=== PATIENT | male | born 1995 | race Caucasian/White ===

== ENCOUNTER 2021-12-26 06:06 | Outpatient (REF) | payer OTHER, SELFPAY ==
--- NOTE | ~2021-12-26 | XR_ITS ---
EXAMINATION: XR SHOULDER, RIGHT CLINICAL INFORMATION: Right shoulder pain. COMPARISON: None TECHNIQUE: AP external rotation, scapular Y, and axillary views of the right shoulder. FINDINGS: Acromioclavicular and glenohumeral joint spaces are maintained. Downsloping acromion. No displaced fracture or dislocation. No abnormal soft tissue calcifications. XR/XR shoulder RT min 2V IMPRESSION: No acute abnormality.
== END 2021-12-26 06:07 | disposition home or self-care (01) ==
LOC: HO.HOSX 06:06
PROVIDERS: Visit Provider Physician Assistant
DX: M25.511 Pain in right shoulder (principal)
CPT/HCPCS: 73030

== ENCOUNTER → 2022-01-25 11:21 | Outpatient (BNVA) | payer OTHER, SELFPAY | PROVIDERS: PCP Internal Medicine; Visit Provider Orthopaedic Surgery | DX: S43.431A Superior glenoid labrum lesion of right shoulder, initial encounter (principal) | CPT/HCPCS: 20610; J1100 ==

== ENCOUNTER → 2022-04-29 14:43 | Outpatient (BNVA) | payer OTHER, SELFPAY | PROVIDERS: PCP Internal Medicine; Visit Provider Orthopaedic Surgery | DX: S43.431D Superior glenoid labrum lesion of right shoulder, subsequent encounter (principal) | CPT/HCPCS: 99212 ==

== ENCOUNTER 2024-10-05 11:03 | Outpatient (REF) | payer OTHER, SELFPAY ==
[2024-10-05 13:27] LABS: MANUAL DIFF FLAG NO
--- OUTSIDE RECORDS SUMMARY | 2024-10-05 13:35 | XMS_ITS | Encounter Summary ---
Author Organization [employer] Address [address] [facility] [place] [address] Care Team Providers Care Tappet Adjuster Name Role Phone Lupis Ahumada MD Primary Care Provider + Reason for Visit * Reason Onset Date Comments Chart prep 10/01/2024 Encounter Details Date Type Department Care Team (Late st Contact Info) Description 10/01/2024 Telephone [facility] MEDICINE [address] [place], [place] [phone] Lupis Ahumada MD [address] [place], [place] [phone] Chart prep Social History Tobacco Use Types Packs/Day Years Used Date Smoking Tobacco: Never Smokeless Tobacco: Never Alcohol Use Standard Drinks/Week Comments Never 0 (1 standard drink = 0.6 oz pur e alcohol) Housing Stability Answer Date Recorded What is your housing situation today? I have naelpeña [place] 11/04/[address] you li ve. Do you have problems with any of the following? None of the above 11/04/2023 Food Insecurity Answer Date Recorded Within the past 12 months, y ou worried that your food would run out before you got money to buy more: Never True 11/04/2023 Within the past 12 months,th e food you bought just didn't last and you didn't have enough money to get more: Never True Transportation Answer Date Recorded In the past 12 months, has l ack of transportation kept you from medical appts, meetings, work or from getting things needed for daily living? No 11/04/2023 Utilities Answer Date Recorded In the past 12 months, has t he electric, gas, oil or water company threatened to shut off services in your home? No 11/04/2023 Sex and Gender Information Value Date Recorded Sex Assigned at Male 04/22/2022 10:35 AM EDT Legal Sex Male 10:35 AM EDT Gender Identity Male 04/22/2022 10:35 AM EDT Sexual Orientation Choose not to disclose 2021 10:35 AM EDT documented as of this encounter Miscellaneous Notes * Telephone Encounter - Maria Esther Mejia MA - 10/01/2024 2:04 PM EDT Chart Prep Labs: not done Images: done Referrals: not applicable Vaccines due: yes Screenings: not applicable Overdue care gaps: PHQ-9 documented in this encounter Plan of Treatment Upcoming Encounters Date Type Department Care Team (Late st Contact Info) Description 12/30/2024 10:15 AM EDT Office Visit [facility] MEDICINE [address] [place] [address] Lupis Ahumada MD [address] [place] [phone] documented as of this encounter Visit Diagnoses Not on filedocumented in this encounter Care Teams Tappet Adjuster Relationship Specialty Start Date End Date Lupis Ahumada MD [address] [place] [phone] PCP - General Family Medicine 07/28/18 documented as of this encounter
--- OUTSIDE RECORDS SUMMARY | 2024-10-05 13:35 | XMS_ITS | Encounter Summary ---
Author Organization [employer] [facility] Address [address] [facility] [address] [place] [address] Care Team Providers Care Transformation Manager Name Role Phone Lupis Ahumada MD Primary Care Provider + Reason for Visit * Reason Comments Med Change Request Encounter Details Date Type Department Care Team (Late Contact Info) Description 10/26/2023 Refill [facility] MEDICINE [address] [place] [phone] Lupis Ahumada MD [address] [place] [address] [phone] Social History Tobacco Use Types Packs/Day Years Used Date Smoking Tobacco: Never Assessed Sex and Gender Information Value Date Recorded Sex Assigned at Male 04/22/2022 10:35 AM EDT Legal Sex Male 10:35 AM EDT Gender Identity Male 04/22/2022 10:35 AM EDT Sexual Orientation Choose not to disclose 2021 10:35 AM EDT documented as of this encounter Plan of Treatment Upcoming Encounters Date Type Department Care Team (Late Contact Info) Description 12/30/2024 10:15 AM EDT Office Visit [facility] MEDICINE [address] [place] [phone] Lupis Ahumada MD [address] [place] [address] [phone] documented as of this encounter Visit Diagnoses Not on filedocumented in this encounter Care Teams Transformation Manager Relationship Specialty Start Date End Date Lupis Ahumada MD [address] [place] [address] [phone] PCP - General Family Medicine 07/28/18 documented as of this encounter
--- OUTSIDE RECORDS SUMMARY | 2024-10-05 13:35 | XMS_ITS | Clinical Summary ---
Author Organization [employer] Address [address] [place] [address] Care Team Providers Care Designer Writer Name Role Phone Lupis Ahumada MD Primary Care Provider + Allergies No known active allergies Medications acyclovir (Zovirax) 400 MG tablet TAKE 1 TABLET BY MOUTH THREE TIMES A DAY 90 tablet 11 4 Active Blood Pressure Monitoring (Blood Pressure Cuff) misc Use daily as prescribed 1 each 5 Active Active Problems Problem Noted Date Diagnosed Date Preventative health care 10/05/2024 Class 1 obesity due to exces s calories without serious comorbidity with body mass index (BMI) of 34.0 to 34.9 in adult 10/05/2024 Elevated blood pressure reading 10/05/2024 Sexually transmitted disease counseling 10/06/19 25 Acne cosmetica 10/31/2023 Recurrent herpes simplex 09/25/2023 Assessment & Plan (11/04/2023 1:53 PM EDT): - oral, controlled - continue Acyclovir 400 mg BID for prophylaxis, he will increase to TID for 7 day for acute flares - avoid oral intercourse during acute episodes Herpes labialis 10/07/2018 Vitamin D deficiency 10/07/2018 Major depression single episode, in partial scott ssion 07/28/2018 Assessment & Plan (11/04/2023 1:54 PM EDT): - seems to be doing well - continue f/u with new counselor - re consult PRN - f/u with me in 6-8 months for PE Resolved Problems Problem Noted Date Diagnosed Date Resolved Date Benzodiazepine dependence 10/07/2018 Encounters Date Type Department Care Team Description 10/05/2024 10:00 AM EDT Office Visit [facility] MEDICINE [address] [place] [phone] Lupis Ahumada MD Preventative health care (Primary Dx); Recurrent herpes simplex; Class 1 obesity due to excess calories without serious comorbidity with body mass index (BMI) of 34.0 to 34.9 in adult; Elevated blood pressure reading; Sexually transmitted disease counseling; Exercise counseling; Dietary counseling 10/05/2024 Travel 10/01/[address] [address] Lupis Ahumada MD Chart prep 09/24/2024 Patient Outreach [address] [phone] Lupis Ahumada MD Pre-visit Planning ((Unable to complete full PVP screening,will complete during visit) 07/23/[address] [phone] Lupis Ahumada MD September recall from Last 3 Months Immunizations Name Administration Dates Next Due Hep B, adult 01/22/2019,11/06/2018,10/07/2018 Tdap 07/01/2023 Social History Tobacco Use Types Packs/Day Years Used Date Smoking Tobacco: Never Smokeless Tobacco: Never Tobacco Cessation:Counseling Given: Not Answered Alcohol Use Standard Drinks/Week Comments Never 0 (1 standard drink = 0.6 oz pur e alcohol) Housing Stability Answer Date Recorded What is your housing situation today? I have nael newton 11/04/[address] you [...] not to disclose 2021 10:35 AM EDT Last Filed Vital Signs Vital Sign Reading Time Taken Comments Blood Pressure 140/95 10/05/2024 10:45 AM EDT Pulse 68 10/05/2024 10:03 AM EDT Temperature 36.2 ??C (97.2 ??F) 10/05/2024 10:03 AM E DT Respiratory Rate - - Oxygen Saturation 100% 10/05/2024 10:03 AM EDT Inhaled Oxygen Concentration - - Weight 99.3 kg (219 lb) 10/05/2024 10:03 AM EDT Height 170.2 cm (5' 7 ) 10/05/2024 10:03 AM EDT Body Mass Index 34.3 10/05/2024 10:03 AM EDT Plan of Treatment Upcoming Encounters Date Type Department Care Team (Late st Contact Info) Description 12/30/2024 10:15 AM EDT Office Visit [facility] MEDICINE [address] [place] [address] Lupis Ahumada MD [address] [place] [address] Health Maintenance Due Date Last Done Comments Depression Screening 1996 HIV Screening 1996 Lipid Panel 1996 Alcohol/Substance Use Screening 2008 Hepatitis C Screening 2014 Hepatitis B Vaccines (3 of 3 - 19+ 3-dose series) 04/08/2019 01/22/2019, 11/06/2018, 10/07/2018 COVID-19 Vaccine (2023-2 5 season) 2024 Influenza Vaccine (#1) 2024 Family Planning (PISQ) 11/03/2024 11/04/2023 SDOH Screening 11/03/2024 11/04/2023 Tobacco Screening 10/05/2025 10/05/2024 DTaP/Tdap/Td Vaccines (2 - T d or Tdap) 07/01/2033 07/01/2023 Zoster Vaccines (1 of 2) 2046 RSV Patients and Patients Aged 60 years or older (1 - 1-dose 75+ series) 12/17/2071 HIB Vaccines Aged Out No longer eligi ble based on patient's age to complete this topic HPV Vaccines Aged Out No longer eligi ble based on patient's age to complete this topic Hepatitis A Vaccines Aged Out No long er eligible based on patient's age to complete this topic IPV Vaccines Aged Out No longer eligi ble based on patient's age to complete this topic Meningococcal Vaccine Aged Out No [place] eligible based on patient's age to complete this topic Pneumococcal Vaccine: Pediatrics (0 to 5 Years) and At-Risk Patients (6 to 49) Years) Aged Out No longer eligible b ased on patient's age to complete this topic RSV under 20 months Aged Out No longe r eligible based on patient's age to complete this topic Rotavirus Vaccines Aged Out No longer eligible based on patient's age to complete this topic Insurance Care Teams Designer Writer Relationship Specialty Start Date End Date Lupis Ahumada MD [address] [place] [phone] PCP - General Family Medicine 07/28/18
--- OUTSIDE RECORDS SUMMARY | 2024-10-05 13:35 | XMS_ITS | Clinical Summary ---
Author Organization [facility] ity Address [address] [place] [address] Care Team Providers Care Hood Fitter Name Role Phone Unavailable Primary Care Provider Unavailabl e Family History Relation Name Status Comments Father Alive Mother Alive Social History Tobacco Use Types Packs/Day Years Used Date Smoking Tobacco: Never Smokeless Tobacco: Never Alcohol Use Standard Drinks/Week Comments No 0 (1 standard drink = 0.6 oz pur e alcohol) Sex and Gender Information Value Date Recorded Sex Assigned at Not on file Legal Sex Male 8:16 PM EST Gender Identity Not on file Sexual Orientation Not on file Obstetrics History Plan of Treatment Health Maintenance Due Date Last Done Comments DTaP,Tdap,and Td Vaccines (1 - Tdap) 12/17/2015 Hepatitis B Vaccines (1 of 3 - 19+ 3-dose series) 12/17/2015 Depression Screening 05/25/2022 HIV Screening 05/25/2022 Hepatitis C Screening 05/25/2022 Social Influencers of Health Screening 05/25/2022 COVID-19 Vaccine ( - 2023-2 5 season) 2024 Influenza Vaccine (Season Ended) 2025 HIB Vaccines Aged Out No longer eligi [...] on patient's age to complete this topic MMR Vaccines Aged Out No longer eligi ble based on patient's age to complete this topic Meningococcal ACWY Vaccine Aged Out N o longer eligible based on patient's age to complete this topic Meningococcal B Vaccine Aged Out No l onger eligible based on patient's age to complete this topic Pneumococcal Vaccine: Pediat rics (0 to 5 Years) and At-Risk Patients (6 to 64 Years) Aged Out No longer eligible b ased on patient's age to complete this topic RSV Immunization Patients Un dashawn 20 months Aged Out No longer eligible b ased on patient's age to complete this topic Varicella Vaccines Aged Out No longer eligible based on patient's age to complete this topic
--- OUTSIDE RECORDS SUMMARY | 2024-10-05 13:35 | XMS_ITS | Encounter Summary ---
Author Organization [employer] Address [address] [facility] [address] [place] [address] Care Team Providers Care Rear Load Truck Driver Name Role Phone Lupis Ahumada MD Primary Care Provider + Reason for Visit * Reason Comments Annual Exam Encounter Details Date Type Department Care Team (Late st Contact Info) Description 10/05/2024 10:00 AM EDT Office Visit [facility] MEDICINE [address] [place], [place] [phone] Lupis Ahumada MD [address] [place], [place] [phone] Preventative health care (Primary Dx); Recurrent herpes simplex; Class 1 obesity due to excess calories without serious comorbidity with body mass index (BMI) of 34.0 to 34.9 in adult; Elevated blood pressure reading; Sexually transmitted disease counseling; Exercise counseling; Dietary counseling Social History Tobacco Use Types Packs/Day Years [...] AM EDT documented as of this encounter Last Filed Vital Signs Vital Sign Reading [...] Mass Index 34.3 10/05/2024 10:03 AM EDT documented in this encounter Plan of Treatment Upcoming Encounters Date Type Department Care Team (Late st Contact Info) Description 12/30/2024 10:15 AM EDT Office Visit [facility] MEDICINE [address] [place] [address] Lupis Ahumada MD [address] [place] [address] Scheduled Orders Name Type Priority Associated Diagnoses Orde r Schedule Syphilis Screen Lab Routine Sexually transmitted disease counseling Expected: 10/05/2024 (Approximate), Expires: 10/05/2025 HIV-1/2 Antigen and Antibodies, Fourth Generation, with Reflexes Lab Routine Sexually transmitted disease counseling Expected: 10/05/2024 (Approximate), Expires: 10/05/2025 Hepatitis Panel, General Lab Routine Sexually transmitted disease counseling Expected: 10/05/2024 (Approximate), Expires: 10/05/2025 Chlamydia/N. Gonorrhoeae RNA, TMA, Urogenitial Microbiology Routine Sexually transmitted disease counseling Ordered: 10/05/2024 documented as of this encounter Visit Diagnoses Diagnosis Preventative health care- Primary Routine general medical examination at a health care facility Recurrent herpes simplex Herpes simplex without mention of complication Class 1 obesity due to excess calories without serious comorbidity with body mass index (BMI) of 34.0 to 34.9 in adult Elevated blood pressure reading Elevated blood pressure reading without diagnosis of hypertension Sexually transmitted disease counseling Counseling on other sexually transmitted diseases Exercise counseling Dietary counseling Dietary surveillance and counseling documented in this encounter Care Teams Rear Load Truck Driver Relationship Specialty Start Date End Date Lupis Ahumada MD [address] [place] [phone] PCP - General Family Medicine 07/28/18 documented as of this encounter
--- OUTSIDE RECORDS SUMMARY | 2024-10-05 13:35 | XMS_ITS | Encounter Summary ---
Author Organization [facility] Address [address] [facility] [address] [place] [address] Care Team Providers Care Desktop Architect Name Role Phone Lupis Ahumada MD Primary Care Provider + Reason for Visit * Reason Comments Med Refill Encounter Details Date Type Department Care Team (Late Contact Info) Description 03/09/2023 Refill [facility] MEDICINE [address] [place] [phone] Lupis Ahumada MD [address] [place] [phone] Social History Tobacco Use Types Packs/Day Years [...] Description 12/30/2024 10:15 AM EDT Office Visit [facility] MEDICINE [address] [place] [phone] Lupis Ahumada MD [address] [place] [phone] documented as of this encounter Visit Diagnoses Not on filedocumented in this encounter Care Teams Desktop Architect Relationship Specialty Start Date End Date Lupis Ahumada MD [address] [place] [address] [phone] PCP - General Family Medicine 07/28/18 documented as of this encounter
--- OUTSIDE RECORDS SUMMARY | 2024-10-05 13:35 | XMS_ITS | Encounter Summary ---
Author Organization [employer] Address [address] [place] [address] Care Team Providers Care Pediatric Physical Therapy Assistant Name Role Phone Lupis Ahumada MD Primary Care Provider + Encounter Details Date Type Department Care Team (Latest Contact Info) Description 10/05/2024 Travel Social History Tobacco Use Types Packs/Day Years [...] Description 12/30/2024 10:15 AM EDT Office Visit [facility] MEDICINE [address] [place] [address] Lupis Ahumada MD [address] [place] [phone] documented as of this encounter Visit Diagnoses Not on filedocumented in this encounter Care Teams Pediatric Physical Therapy Assistant Relationship Specialty Start Date End Date Lupis Ahumada MD [address] [place] [phone] PCP - General Family Medicine 07/28/18 documented as of this encounter
[2024-10-05 13:41] LABS: Basophils Percent Auto 0.3 % (0-2); Eosinophils Absolute Auto 0.2 X10*3/uL (0.0-0.4); Eosinophils Percent Auto 2.6 % (0-4); Hematocrit 48.4 % (42.0-52.0); Hemoglobin 16.3 g/dl (14.0-18.0); Imm Gran Abs Auto 0.02 X10*3/uL (0.00-0.03); Imm Gran Pct Auto 0.3 % (0.0-0.4); Lymphocytes Absolute Auto 1.7 X10*3/uL (1.2-4.9); Lymphocytes Percent Auto 28.8 % (20-40); Mean Corpuscular HGB Conc 33.7 g/dl (31.0-36.0); Mean Corpuscular Volume 86.1 fL (80.0-98.0); Mean Platelet Volume 10.4 fL (9.4-12.4); Monocytes Absolute Auto 0.4 X10*3/uL (0.1-1.2); Monocytes Percent Auto 6.6 % (2-11); Neutrophils Absolute Auto 3.5 x10*3/uL (2.0-8.3); Neutrophils Percent Auto 61.4 % (45-73); Platelet Count 268 X10*3/uL (160-400); Red Blood Count 5.62 X10*6/uL (4.60-5.80); Red Cell Distribution Width 12.9 % (11.0-16.0); White Blood Count 5.8 X10*3/uL (4.8-10.8)
[2024-10-05 14:15] LABS: Alanine Aminotransferase 25 U/L (0-40); Albumin Level 4.7 g/dL (3.5-5.0); Anion Gap 12 (12-20); Aspartate Amino Transferase 24 U/L (5-37); Bilirubin Total 0.3 mg/dL (0.0-1.0); Blood Urea Nitrogen 15 mg/dL (9-16); Calcium 9.6 mg/dL (8.4-10.2); Carbon Dioxide 27 mmol/L (22-29); Chloride 103 mmol/L (96-108); Cholesterol 145 mg/dL (<200); Estimated Glomerular Filt Rate > 60; Glucose Random 88 mg/dL (60-115); HDL Cholesterol 47 mg/dL (>40); LDL Cholesterol Calculated 86 mg/dL (<100); Potassium 3.7 mmol/L (3.3-5.1); Sodium 138 mmol/L (135-145); Total Protein 8.2 g/dL (6.5-8.0); Triglycerides 60 mg/dL (<150)
[2024-10-05 14:27] LABS: Vitamin D 25-OH Total 49.3 ng/mL (>30)
[2024-10-05 15:12] LABS: Reflex LDLD? No
[2024-10-05 15:34] LABS: CT PCR NOT DETECTED (Not Detect.); NG PCR NOT DETECTED (Not Detect.)
[2024-10-05 17:31] LABS: Alkaline Phosphatase 62 U/L (39-117)
[2024-10-06 08:32] LABS: Syphilis Screen Nonreactive (Nonreactive)
[2024-10-07 09:27] LABS: HBS Num1 81.55 mIU/mL (0-7.99); HBc Num1 0.14 S/CO (0.00-0.79); HIV AB/AG Nonreactive (Nonreactive); HIV Num 1 0.05 S/CO (0.00-0.99); Hepatitis A Antibody IgM 0.14 Index (0-0.79); Hepatitis B Core Antibody Nonreactive (Nonreactive); Hepatitis B Surface Antigen Negative (Negative); ~HepC Num1 0.11 S/CO (0.00-0.79); ~Hepatitis A Antibody IgM Nonreactive (Nonreactive); ~Hepatitis B Surface Antibody REACTIVE (Nonreactive); ~Hepatitis C Antibody Nonreactive (Nonreactive)
[2024-10-08 16:39] LABS: TS Negative Control Passed; TS Panel A 2; TS Panel B 1; TS Positive Control Passed; TSpotTB Negative (Negative)
== END 2024-10-05 11:04 | disposition home or self-care (01) ==
LOC: HO.HHCL 11:03
PROVIDERS: Visit Provider Internal Medicine
DX: B00.9 Herpesviral infection, unspecified (principal); F32.4 Major depressive disorder, single episode, in partial remission; Z70.8 Other sex counseling
CPT/HCPCS: 36415; 80053; 80061; 82306; 85025; 86481; 86704; 86706; 86709; 86780; 86803; 87340; 87389; 87491; 87591